=== PATIENT | female | born 1985 | race Asian ===

== ENCOUNTER 2017-07-11 05:32 | Inpatient (IN) | payer SELFPAY ==
[~2017-07-11] VITALS: Ht 170 cm; Wt 81.6 kg
[2017-07-11] MEDS ORDERED: AMPICILLIN 2,000 MG VIAL ONE (06:42)
[2017-07-11] MEDS ORDERED: LACTATED RINGERS 1,000 ML IV SCH (06:44)
[2017-07-11] MEDS ORDERED: OXYTOCIN 10 UNITS/ML VIAL IM ONE (06:45)
[2017-07-11] MEDS ORDERED: PROMETHAZINE 25 MG/ML VIAL IVP PRN (06:45)
[2017-07-11] MEDS ORDERED: NALBUPHINE HYDROCHLORIDE 10 MG/ML VIAL IVP PRN (06:45)
[2017-07-11] MEDS ORDERED: AMPICILLIN 2,000 MG in NACL 0.9% MINI-BAG PLUS 100 ML IV SCH (06:45)
[2017-07-11] MEDS ORDERED: ROPIVACAINE 0.2%/NS PREMIX 250 ML EPI ONE (06:53)
[2017-07-11] MEDS ORDERED: LIDOCAINE 1% 50 ML ONE (06:59)
[2017-07-11] MEDS ORDERED: OXYTOCIN 20 UNITS in LACTATED RINGERS 1,000 ML IV SCH (07:00)
[2017-07-11] MEDS ORDERED: LIDOCAINE 1% 500 MG/50 ML VIAL INJ ONE (07:00)
[2017-07-11] MEDS ORDERED: OXYTOCIN 20 UNITS/LR PREMIX 1,000 ML IV ONE (07:00)
[2017-07-11] MEDS ORDERED: OXYTOCIN 10 UNITS/ML VIAL IM SCH (07:00)
[2017-07-11] MEDS ORDERED: OXYTOCIN 10 UNITS/ML VIAL ONE (07:01)
[2017-07-11 07:44] LABS: BASOPHILS # (AUTO) 0.1 K/uL (0.00-0.22); BASOPHILS % (AUTO) 0.7 % (0.0-2.0); EOSINOPHILS # (AUTO) 0.1 K/uL (0-0.4); EOSINOPHILS % (AUTO) 0.7 % (0.0-4.0); HEMATOCRIT 39.1 % (36-48); HEMOGLOBIN 13.5 g/dL (12.0-16.0); LYMPHOCYTES # (AUTO) 1.5 K/uL (2.5-16.5); LYMPHOCYTES % (AUTO) 13.1 % (20.5-51.1); MEAN CORPUSCULAR HEMOGLOBIN 31 pg (27-31); MEAN CORPUSCULAR HGB CONC 35 g/dL (33-37); MEAN CORPUSCULAR VOLUME 90 fL (80-94); MONOCYTES # (AUTO) 0.6 K/uL (0.8-1.0); MONOCYTES % (AUTO) 5.5 % (1.7-9.3); NEUTROPHILS # (AUTO) 9.3 K/uL (1.8-7.7); PLATELET COUNT (AUTO) 168 K/uL (140-450); RED BLOOD CELL COUNT(AUTO) 4.33 MIL/uL (4.20-5.40); RED CELL DISTRIBUTION WIDTH 12.7 % (11.6-13.7); WHITE BLOOD COUNT (AUTO) 11.6 K/uL (4.8-10.8)
[2017-07-11] MEDS ORDERED: BENZOCAINE/MENTHOL 20%-0.5% 60 GM CAN TP PRN (07:50)
[2017-07-11] MEDS ORDERED: METHYLERGONOVINE 0.2 MG/ML AMP IM PRN (07:50)
[2017-07-11] MEDS ORDERED: MEASLES, MUMPS, AND RUBELLA 1 VIAL SQVAC PRN (07:50)
[2017-07-11] MEDS ORDERED: HYDROcodone/APAP 5/325 MG 1 TAB TAB PO PRN (07:50)
[2017-07-11] MEDS ORDERED: TEMAZEPAM 15 MG CAP PO PRN (07:50)
[2017-07-11] MEDS ORDERED: OXYTOCIN 10 UNITS/ML VIAL IM PRN (07:50)
[2017-07-11] MEDS ORDERED: BISACODYL 10 MG SUPP RC PRN (07:50)
[2017-07-11] MEDS ORDERED: METHYLERGONOVINE 0.2 MG TAB PO PRN (07:50)
[2017-07-11 08:00] VITALS: BP 109/59
[2017-07-11] MEDS ORDERED: AMPICILLIN 1,000 MG in NACL 0.9% MINI-BAG PLUS 50 ML IV SCH (08:00)
[2017-07-11] MEDS: oxyCODONE/APAP 5/325 MG 1 TAB TAB PO PRN ×3 (08:04→22:37)
[2017-07-11] MEDS ORDERED: oxyCODONE/APAP 5/325 MG 1 TAB TAB ONE (08:05)
[2017-07-11 08:34] LABS: APPEARANCE,URINE CLEAR (CLEAR); BILIRUBIN,URINE NEGATIVE (NEGATIVE); BLOOD, URINE 3+ (NEGATIVE); COLOR,URINE YELLOW (YELLOW); LEUKOCYTE ESTERASE ,URINE NEGATIVE (NEGATIVE); NITRITE, URINE NEGATIVE (NEGATIVE); UGLUCOSE 1+ (NEGATIVE)
[2017-07-11 08:55] LABS: RBC,URINE 3-10 (FEW) /HPF (0-5); WBC,URINE 0-5 (RARE) /HPF (0-5)
--- NOTE | 2017-07-11 09:19 | NUR ---
PATIENT HAS BEEN SCREENED AND CATEGORIZED LOW NUTRITION RISK. PATIENT WILL BE SEEN WITHIN 7 DAYS OF ADMISSION. 07/17/[address]
[2017-07-11] MEDS ORDERED: DOCUSATE SOD/SENNA 50/8.6 MG 1 TAB PO SCH (21:00)
[2017-07-11] MEDS ORDERED: BISACODYL 5 MG TABEC PO SCH (21:00)
[2017-07-12] MEDS ORDERED: INFLUENZA VIRUS VACCINE QUAD 0.5 ML SYR IMVAC SCH (01:00)
[2017-07-12 07:45] LABS: HEMATOCRIT 37.3 % (36-48); HEMOGLOBIN 12.7 g/dL (12.0-16.0)
[2017-07-12 09:12] LABS: HEPATITIS B SURFACE ANTIGEN Negative (Negative)
== END 2017-07-12 15:40 | disposition home or self-care (01) | DRG 775 ==
LOC: MLD 05:32 → MFCC 10:00
PROVIDERS: ADMIT Obstetrics & Gynecology; ATTEND Obstetrics & Gynecology
PROC: 10E0XZZ Delivery of Products of Conception, External Approach (ICD-10-PCS; principal; 2017-07-11)
PROC: 10907ZC Drainage of Amniotic Fluid, Therapeutic from Products of Conception, Via Natural or Artificial Opening (ICD-10-PCS; 2017-07-11)
PROC: 0HQ9XZZ Repair Perineum Skin, External Approach (ICD-10-PCS; 2017-07-11)
PROC: 3E0234Z Introduction of Serum, Toxoid and Vaccine into Muscle, Percutaneous Approach (ICD-10-PCS; 2017-07-11)
PROC: 3E0234Z Introduction of Serum, Toxoid and Vaccine into Muscle, Percutaneous Approach (ICD-10-PCS; 2017-07-12)
DX: O69.1XX0 Labor and delivery complicated by cord around neck, with compression, not applicable or unspecified (principal); E03.9 Hypothyroidism, unspecified; O99.284 Endocrine, nutritional and metabolic diseases complicating childbirth; O70.0 First degree perineal laceration during delivery; Z23 Encounter for immunization; Z37.0 Single live birth; Z3A.37 37 weeks gestation of pregnancy
CPT/HCPCS: 36415; 51702; 59409; 81001; 85018; 85025; 86592; 86762; 86886; 86900; 86901; 87340; 90658; 90715; J0290; J2001; J2590; J2795; J7120